=== PATIENT | male | born 1935 | race Caucasian/White ===

== ENCOUNTER 2019-02-23 11:52 | Inpatient (IN) | payer OTHER ==
[~2019-02-23] VITALS: Ht 185.4 cm; Wt 66.7 kg
[2019-02-23 11:53] VITALS: BP 134/46
[2019-02-23] MEDS ORDERED: ASA81BEC PO (12:25)
[2019-02-23] MEDS ORDERED: PLAVIX 75 MG TA75 MG PO (12:25)
[2019-02-23] MEDS ORDERED: ALLOPURINOL 10100 M3 PO (12:25)
[2019-02-23] MEDS ORDERED: FUROSEMIDE 40 M40 MG PO (12:25)
[2019-02-23] MEDS ORDERED: PROAIR HFA8.5 GM INH (12:25)
[2019-02-23] MEDS ORDERED: IPRAT-ALBUT 0.5-3 ML INH (12:26)
[2019-02-23] MEDS ORDERED: NEURONTIN 300M300 M2 PO (12:26)
[2019-02-23] MEDS ORDERED: IRON325 M1 PO (12:26)
[2019-02-23] MEDS ORDERED: GREEN TEA250 MG PO (12:26)
[2019-02-23] MEDS ORDERED: ARAVA10 MG PO (12:29)
[2019-02-23 12:30] LABS: HEMATOCRIT 24.5 % (42.0-52.0); HEMOGLOBIN 7.8 gm/dL (14.0-18.0); MCH 30.2 pg (26.0-34.0); MCHC 31.9 g/dL (28.0-37.0); MCV 94.8 fL (80.0-100.0); PLATELET COUNT 128 thou/uL (150-400); RBC 2.59 mil/uL (4.50-6.00); RDW 21.9 % (10.5-14.5); WBC 6.7 thou/uL (4.0-11.0)
[2019-02-23] MEDS ORDERED: SUPER THERAVIT1 EACH PO (12:30)
[2019-02-23] MEDS ORDERED: LEVO-T50 MCG PO (12:30)
[2019-02-23] MEDS ORDERED: KLOR-CON M2020 MEQ PO (12:30)
[2019-02-23] MEDS ORDERED: MELATONIN3 M1 PO (12:30)
[2019-02-23] MEDS ORDERED: RAYOS5 MG PO (12:31)
[2019-02-23 12:32] LABS: BE(vivo) 2.6 mmol/L (-2 to +3); HCO3 27.2 mmol/L (22.0-26.0); PO2 51.5 mmHg (80.0-100.0); pH 7.429 (7.360-7.450); sO2 87.4 % (92.0-98.0)
[2019-02-23] MEDS ORDERED: VITAMIN B-6100 MG PO (12:32)
[2019-02-23] MEDS ORDERED: ANORO ELLIPTA1 EACH INH (12:32)
[2019-02-23] MEDS ORDERED: CRESTOR5 MG PO (12:32)
[2019-02-23] MEDS ORDERED: FLOMAX0.4 MG PO (12:32)
[2019-02-23] MEDS ORDERED: VITAMIN B-121000 MC3 PO (12:33)
[2019-02-23 12:38] LABS: CALCIUM 9.4 mg/dL (8.5-10.1); CREATININE 1.3 mg/dL (0.7-1.3); POTASSIUM 4.1 mmol/L (3.5-5.1)
[2019-02-23 12:41] LABS: INR 1.1; PROTIME 11.5 Seconds (9.3-11.4)
[2019-02-23 12:45] LABS: ALBUMIN 3.2 g/dL (3.4-5.0); TOTAL BILIRUBIN 0.7 mg/dL (<0.1-1.0); TOTAL PROTEIN 6.5 g/dL (6.4-8.2)
[2019-02-23 13:46] LABS: ABSOLUTE NEUTROPHILS 4.6 thou/uL (1.4-8.2); PLATELET ESTIMATE DECREASED
[2019-02-23 13:47] LABS: ANISOCYTOSIS 2+; MACROCYTES 1+; OVALOCYTES FEW; POIKILOCYTOSIS 1+; TEARDROPS OCCASIONAL
[2019-02-23 13:48] LABS: MICROCYTES FEW; POLYCHROMASIA SLIGHT
[2019-02-23 13:49] LABS: LARGE PLATELETS FEW
[2019-02-23 15:20] VITALS: BP 145/50
[2019-02-23 15:33] VITALS: BP 145/50
[2019-02-23 16:21] VITALS: BP 142/63
--- NOTE | 2019-02-23 18:10 | NUR ---
PT CARE ASSUMED APPROX 1630. ASSESSMENT CHARTED. DENIES PAIN AND SOA. PT O2 AMOUNT IS AT BASELINE. PT INTERMITTENTLY TAKES NC OFF. PT REPORTS THAT HE WON'T CALL OUT FOR HELP TO STAND OR AMBULATE. DR HOWE AT BEDSIDE WHEN PT VERBALIZED REFUSAL TO COMPLY WITH FALL PRECAUTIONS. PT EDUCATED. VSS. WOUNDS TO RLE X3 MEASURED AND PHOTOED PER POLICY. PT UPDATED TO POC AND DENIES QUESTIONS OR CONCERNS AT THIS TIME. TOLERATING POC. NO DISTRESS NOTED.
[2019-02-23 19:33] VITALS: BP 134/45
[2019-02-24 00:10] VITALS: BP 151/58
--- NOTE | 2019-02-24 05:17 | NUR ---
A/O X 4.VERBALIZED HE WANTS TO GO HOME TODAY.REFUSED VITALS TO BE CHECKED.MONITOR SHOWS SR.POC CONTINUED.
[2019-02-24 08:12] VITALS: BP 135/35
[2019-02-24] MEDS ORDERED: DOXYCYCLINE HYC50 MG PO (09:51)
[2019-02-24 09:58] VITALS: BP 135/35
--- NOTE | 2019-02-24 10:29 | NUR ---
Pt dcing home this am and has appt to f/u with his pcp tomorrow. Pt reports his son Michele will be coming in town this evening from [place]. He was on the phone with dtr Dolores who lives in [place]. She participated in our discussion via speaker phone. The pt is a&ox4 and fiercely independent. He maintains an active lifestyle. He drives to the gym every morning and does his own errands. 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 He walks with a st cane and has a stair glide at home. He has a aerologist regularly and a neighbor Lizett who helps as needed. His dtr reports that they have been talking about hiring in some private duty support a couple of hours a day but he has been resistent. He does not want to pay someone to sit and look at him. Encoragement given to make a list of chores for private duty then contact a couple of agencies to see who would do a 2hr time slot. Sr [employer] given with private duty highlighted. The pt denies the need for HH as he does not anticipate being homebound. He will have his son drive him to see Dr. Nair tomorrow. Nursing in the room change the bandage to his lower est skill tears. Support provided along with encouragement. Dtr provided with cm number should she have additional questions regarding resources. Pt lives alone and is . He is planning to drive himself home today and indicates this was cleared by the attending. No interventions indicated.
--- NOTE | 2019-02-24 11:03 | NUR ---
DR. HOWE HERE, DISCHARGING PATIENT. DISCHARGE INSTRUCTIONS GIVEN.
== END 2019-02-24 11:07 | disposition home or self-care (01) | DRG 291 ==
LOC: ER 11:52 → 2N 15:00 → EROBS 15:00 → 2N 15:48 → ENTRNSPT 02-24 10:57 → 2N 02-24 11:07
PROVIDERS: Physician Assistant; ADMIT Family Medicine
DX: I50.33 Acute on chronic diastolic (congestive) heart failure (principal); J18.9 Pneumonia, unspecified organism; J44.0 Chronic obstructive pulmonary disease with (acute) lower respiratory infection; D46.9 Myelodysplastic syndrome, unspecified; J40 Bronchitis, not specified as acute or chronic; M10.9 Gout, unspecified; Z87.891 Personal history of nicotine dependence; Z79.899 Other long term (current) drug therapy
CPT/HCPCS: 10081